=== PATIENT | female | born 2005 | race Caucasian/White ===

== ENCOUNTER 2024-03-07 07:00 | Emergency (ER) | payer OTHER, SELFPAY ==
--- NOTE | ~2024-03-07 | CT_ITS ---
EXAMINATION: CT abdomen pelvis wo con DATE: 03/07/2024 08:43 INDICATION: Hematuria. Abdominal pain. TECHNIQUE: Computed tomography (CT) of the abdomen and pelvis was performed without intravenous contr ast. Automated exposure control and iterative reconstruction technique were employed. The dose-length product was 433.56 mGy-cm. COMPARISON: None. FINDINGS: The visualized portions of the lung bases are clear without pneumonia or pleural effusion. The heart size is normal. No pericardial effusion. The liver, gallbladder, spleen, pancreas, adrenal glands, and kidneys are normal. There is no urolithiasis. There is an intrauterine device in expected position. There are no dilated loops of bowel. The appendix is not visualized. There are no patholog ically enlarged lymph nodes. There is physiologic fluid in the pelvis. There is a tampon the vagina. There is moderate spondylosis at T9-T10. IMPRESSION: 1. No urolithiasis. Reviewed, dictated and finalized at location A. ATRIC PHYSICIAN IMPRESSION: 1. No urolithiasis.
[2024-03-07 07:07] VITALS: BP 131/85; PULSE 70; RESP 15; TEMP 36.2; O2SAT 100
[2024-03-07 07:29] LABS: Add Urine Microscopic? YES; Appearance Urine Cloudy (Clear); Bacteria Urine None Seen /hpf; Bilirubin Urine Negative (Negative); Blood Urine 3+ (Negative); Color Urine Yellow (Yellow); Glucose Urine UA Negative (Negative); Ketones Urine Negative (Negative); Leukocyte Esterase Ur Negative LEU/UL (Negative); Nitrate Urine Negative (Negative); Non Pathogenic Casts 0-2; Protein Urine Negative (Negative); RBC Urine >100 /hpf (0-2); Specific Grav Ur 1.027 (1.001-1.035); Squamous Epithelial Cell Urine Few /hpf (Few); Urobilinogen Urine 0.2 mg/dL (<2.0); pH Urine 5.5 (5.0-9.0)
[2024-03-07 07:59] LABS: BEDSIDEPREGUCG Negative (Negative)
[2024-03-07 08:34] VITALS: BP 118/65; PULSE 68; RESP 16; O2SAT 100
--- NOTE | 2024-03-07 08:36 | ED.GENADULT ---
HPI - General Adult General Chief complaint: Unspecified Stated complaint: i think my IUD is puncturing me Time Seen by Provider: 03/07/24 08:28 History of Present Illness HPI narrative: 18-year-old female presenting to the emergency department for evaluation for suspected IUD pain. Patient reports she had the IUD placed approximately [address] Marie. Patient reports she began having right flank pain and suprapubic abdominal pain approximately 2 days ago. Patient does have some vaginal bleeding because she is currently on her menstrual cycle. Patient did attempt to contact her physician and they stated they were full and referred her to the emergency department. Related Data Allergies Allergy/AdvReac Type Severity Reaction Status Date / Time No Known Allergies Allergy Verified 03/07/24 07:10 Review of Systems Review of Systems: All systems reviewed & are unremarkable except as noted in HPI and below Exam Narrative: APPEARANCE: Well appearing, no pain, no distress, well-nourished. HEAD: normocephalic, atraumatic. EYES: PERRLA/EOMI, conjunctivae clear. NOSE: Normal no drainage EARS:TMS clear with good light reflex. THROAT: Pharynx clear, no exudate. NECK: Supple. No adenopathy, no masses. RESPIRATORY: Airway patent, respirations nonlabored. Clear to auscultation bilaterally, no rales, rhonchi, wheezing. CARDIOVASCULAR: Regular rate and rhythm without murmurs rubs or gallops. ABDOMINAL: Soft, nontender, nondistended, normal bowel sounds MUSCULOSKELETAL: Moves all extremities. Strength/ROM intact, No edema, No calf tenderness. NEURO: Alert. Cranial nerves II through XII intact. Grossly intact SKIN: Warm, dry. Normal Color Course Course Emergency Course: APPEARANCE: Well appearing, no pain, no distress, well-nourished. HEAD: normocephalic, atraumatic. EYES: PERRLA/EOMI, conjunctivae clear. NOSE: Normal no drainage EARS:TMS clear with good light reflex. THROAT: Pharynx clear, no exudate. NECK: Supple. No adenopathy, no masses. RESPIRATORY: Airway patent, respirations nonlabored. Clear to auscultation bilaterally, no rales, rhonchi, wheezing. CARDIOVASCULAR: Regular rate and rhythm without murmurs rubs or gallops. ABDOMINAL: Suprapubic abdominal tenderness to palpation MUSCULOSKELETAL: Moves all extremities. Strength/ROM intact, No edema, No calf tenderness. NEURO: Alert. Cranial nerves II through XII intact. Good gait. Good coordination SKIN: Warm, dry. Normal Color Vital Signs Vital signs: Vital Signs Temperature 97.1 F L 03/07/24 07:07 Pulse Rate 70 03/07/24 07:07 Respiratory Rate 15 03/07/24 07:07 Blood Pressure 131/85 03/07/24 07:07 Pulse Oximetry 100 03/07/24 07:07 Oxygen Delivery Room Air 03/07/24 07:07 Temperature 97.8 F 03/07/24 09:58 Pulse Rate 80 03/07/24 09:58 Respiratory Rate 16 03/07/24 09:58 Blood Pressure 104/81 03/07/24 09:58 Pulse Oximetry 100 03/07/24 09:58 Oxygen Delivery Room Air 03/07/24 07:07 Medical Decision Making MDM Narrative Medical decision making narrative: 18-year-old female presented emergency department for evaluation for suprapubic abdominal pain. UA was negative for infection but did show hematuria. CT scan was ordered to evaluate for possible kidney stone. Nose kidney stone was visualized on CT scan. Bleeding is most likely secondary to her currently time for menstrual cycle. No acute abnormalities on the CT scan, IUD is in the expected location. Patient was encouraged to continue have close follow-up with [facility]. Differential Diagnosis Differential Diagnosis: IUD complicated, ureteral calculi, hematuria, menstrual cycle, abdominal pain Vital Signs Vital Signs: Vital Signs Temperature 97.1 F L 03/07/24 07:07 Pulse Rate 70 03/07/24 07:07 Respiratory Rate 15 03/07/24 07:07 Blood Pressure 131/85 03/07/24 07:07 Pulse Oximetry 100 03/07/24 07:07 Oxygen Delivery Room Air 03/07/24 07:07 Temperature 97.8 F 03/07/24 09:58 Pulse Rate 80 03/07/24 09:58 Respiratory Rate 16 03/07/24 09:58 Blood Pressure 104/81 03/07/24 09:58 Pulse Oximetry 100 03/07/24 09:58 Oxygen Delivery Room Air 03/07/24 07:07 Lab Data Labs: Lab Results 03/07/24 03/07/24 Range/Units 07:18 07:54 Urine Color Yellow (Yellow) Urine Appearance Cloudy H (Clear) Urine pH 5.5 (5.0-9.0) Ur Specific [place] 1.027 (1.001-1.035) Urine Protein Negative (Negative) mg/dL Urine Glucose (UA) Negative (Negative) mg/dL Urine Ketones Negative (Negative) mg/dL Ur Blood (Man) 3+ H (Negative) Urine Nitrate Negative (Negative) Urine Bilirubin Negative (Negative) Urine Urobilinogen 0.2 (<2.0) mg/dL Leukocyte Esterase Rfl Negative (Negative) BIGG/UL Urine RBC >100 H (0-2) /hpf Urine WBC 6-10 H (0-3) /hpf Ur Squamous Epith Cells Few (Few) /hpf Urine Bacteria None seen /hpf Urine Casts 0-2 POC Urine HCG, Qual Negative (Negative) Discharge Plan Discharge Clinical Impression: Pelvic pain Patient Disposition: Home, Self-Care Condition: Stable Instructions: Antibiotic Form Additional Instructions: Have close follow-up with [facility]. Follow-up/Referrals: Jhony Marie MD [Physician] - UNKNOWN,DOCTOR [Primary Care Provider] -
[2024-03-07 09:58] VITALS: BP 104/81; PULSE 80; RESP 16; TEMP 36.6; O2SAT 100
== END 2024-03-07 10:13 | disposition home or self-care (01) ==
PROVIDERS: Emergency Provider Emergency Medicine
DX: R10.2 Pelvic and perineal pain (principal); Z97.5 Presence of (intrauterine) contraceptive device
CPT/HCPCS: 74176; 81001; 81025; 87086; 99284

== ENCOUNTER 2024-09-19 09:31 | Emergency (ER) | payer OTHER, SELFPAY ==
--- NOTE | ~2024-09-19 | XR_ITS ---
XR chest 2V Ordering provider: Mitchell Smith MD History: 19 years Female with . CP . Comparison: July 18, 2014 FINDINGS: MEDIASTINUM: The cardiac silhouette is not enlarged. LUNGS: No infiltrates, effusions or pneumothorax. OTHER: No free air under the diaphragm. IMPRESSION: No acute cardiopulmonary pathology. Reviewed, dictated and finalized at location A.
--- NOTE | ~2024-09-19 | CT_ITS ---
Clinical Indication: Pleuritic chest pain CT Scan of the Chest with Contrast: Technique: Contiguous sections were acquired throughout the chest after intravenous administration of 100 cc of Omnipaque 350. Dose reduction technique was used on this scan by utilizing automated expos ure control and iterative reconstruction technique. The dose-length product (DLP) was 197.77 mGy-cm. Findings: There is no evidence of any significant mediastinal, hilar or axillary lymphadenopathy. There is no f illing defect in the pulmonary arterial tree to suggest pulmonary embolus. There is no evidence of ao rtic dissection or aneurysm. There is no evidence of pleural or pericardial effusion. The lungs are clear. No pulmonary nodules or infiltrates are noted. Images through the upper abdomen reveal no abnormalities. Impression: No evidence of pulmonary embolus, aortic dissection, or aortic aneurysm. Clear lungs. Reviewed, dictated and finalized at [facility]. Impression: No evidence of pulmonary embolus, aortic dissection, or aortic aneurysm. Clear lungs.
[2024-09-19 09:36] VITALS: BP 108/71; PULSE 68; RESP 17; TEMP 36.4; O2SAT 100
--- NOTE | 2024-09-19 09:36 | ECG_ITS ---
Test Date: 2024-09-19 09:39:13 Measurements Intervals [place] Rate: 68 P: 57 PA: 160 QRS: 3 QRSD: 80 T: 5 QT: 379 QTc: 406 Interpretive Statements SINUS RHYTHM WITH SINUS ARRHYTHMIA BORDERLINE ST-T WAVE ABNORMALITY- INFERIOR LEADS BASELINE ARTIFACT- I, II, III, AVR, AVL, AVF, V1-V6 BORDERLINE ECG No previous ECG available for comparison Electronically Signed On 09-19-2024 09:54:27 CDT by Milton Ramsey D.O.
[2024-09-19 09:46] LABS: Basophils Absolute Auto 0.1 K/mm3 (0.0-0.1); Eosinophils Absolute Auto 0.3 K/mm3 (0-0.3); Eosinophils Percent Auto 3.2 % (0-4.4); Hematocrit 38.5 % (37.0-47.0); Immature Granulocyte Absolute 0.03 K/mm3 (0.00-0.031); Immature Granulocyte Percent A 0.4 % (0-0.5); Lymphocytes Absolute Auto 2.92 K/mm3 (0.9-3.2); Lymphocytes Percent Auto 35.6 % (18.3-44.2); Mean Corpuscular HGB Conc 31.2 g/dl (32-36); Mean Corpuscular Hemoglobin 27.6 pg (26-34); Mean Corpuscular Volume 88.7 fl (80-100); Mean Platelet Volume 9.9 fl (7.4-10.4); Monocytes Absolute Auto 0.7 K/mm3 (0.1-0.6); Monocytes Percent Auto 8.8 % (2.6-8.5); Neutrophils Absolute Auto 4.2 K/mm3 (1.3-6.7); Platelet Count Result 352 k/mm3 (150-375); Red Blood Count 4.34 M/mm3 (4.2-5.4); Red Cell Distribution Width 14.4 % (11.5-14.5); White Blood Count 8.2 K/mm3 (4.5-10.0)
--- NOTE | 2024-09-19 09:49 | PC.NURSE ---
Pt reports last time she was here, the hospital gown gave her a rash. Pt prefers to wear home clothes.
[2024-09-19 09:57] LABS: Alanine Aminotransferase 22 U/L (6-35); Albumin Level 4.6 g/dL (3.5-5.1); Alkaline Phosphatase 73 U/L (38-126); Anion Gap 9 mmol/L (4-12); Aspartate Amino Transferase 29 U/L (14-36); Bilirubin,Total 0.2 mg/dL (0.2-1.3); Blood Urea Nitrogen 20 mg/dL (7-17); Calcium 9.4 mg/dL (8.4-10.2); Carbon Dioxide 25 mmol/L (22-30); Chloride 106 mmol/L (98-107); Estimated CRCL calculation 87 ml/min; Estimated Glomerular Filt Rate > 60; Glucose 99 mg/dL (65-110); Lipase 91 U/L (23-300); Potassium 4.1 mmol/L (3.4-5.0); Sodium 140 mmol/L (137-145); Total Protein 7.9 g/dL (6.3-8.2)
[2024-09-19 09:58] LABS: Partial Thromboplastin Time 27.6 Seconds (22.3-36.8)
[2024-09-19 10:08] LABS: Troponin I < 0.012 ng/mL (0.000-0.034)
--- OUTSIDE RECORDS SUMMARY | 2024-09-19 10:23 | XMS_ITS | Clinical Summary ---
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 Name Role Phone Unavailable Primary Care Provider Unavailabl e Allergies No known active allergies Medications No known medications Active Problems No known active problems Family History Medical History Relation Name Comments No Known Problems Father No Known Problems Mother Relation Name Status Comments Father Alive Mother Alive Social History Tobacco Use Types Packs/Day Years Used Date Smoking Tobacco: Never Smokeless Tobacco: Never Tobacco Cessation:Counseling Given: No Alcohol Use Standard Drinks/Week Comments No 0 (1 standard drink = 0.6 oz pur e alcohol) Comments No Sex and Gender Information Value Date Recorded Sex Assigned at Not on file Legal Sex Female 10:04 AM CDT Gender Identity Not on file Sexual Orientation Not on file Last Filed Vital Signs Vital Sign Reading Time Taken Comments Blood Pressure 110/66 11/25/2017 1:45 PM CDT Pulse 58 11/25/2017 1:45 PM CDT Temperature 36.4 C (97.5 F) 11/25/2017 1:45 PM CDT Respiratory Rate 16 11/25/2017 1:45 PM CDT Oxygen Saturation 95% 11/25/2017 1:45 PM CDT Inhaled Oxygen Concentration - - Weight 57.2 kg (126 lb) 11/25/2017 1:45 PM CDT Height 162.6 cm (5' 4) 11/25/2017 1:45 PM CDT Body Mass Index 21.63 11/25/2017 1:45 PM CDT Plan of Treatment Health Maintenance Due Date Last Done Comments CHLAMYDIA SCREENING (ANNUAL) 11-24 YEARS 08/25/2015 HPV VACCINES (1 - 3-dose series) 08/25/2019 DTAP/TDAP/TD VACCINES (1 - Tdap) 08/25/2023 HEPATITIS B VACCINES (1 of 3 - 19+ 3-dose series) 08/04 INFLUENZA VACCINE (#1) 2023
--- OUTSIDE RECORDS SUMMARY | 2024-09-19 10:24 | XMS_ITS | Data Portability ---
Author Organization [facility] [place] Address [address] [place] [address] Care Team Providers Care Rubber Attacher Name Role Phone CLARIBEL FLETCHER Primary Care Provider [phone] Assessment No assessment recorded. Plan of Treatment Reminders Order Date Submit Date Provider Last Modified By Organization Details Last Modified Time Details Appointments None recorded. Lab urinalysis, dipstick [address]24 [email or web address], [address], [place], [address], 5 15:20:38 culture, urine 2024 025 [facility] (Lab), [address] [facility], [place], [address], 5 15:44:26 urinalysis, dipstick 2023 024 [place] [facility] [address], [place], [address], 4 11:41:39 test, urine 2023 024 [email or web address] [address], [address], [place], [address], 10:00:57 test, urine 2023 024 [email or web address] [address], [address], [place], [address], 4 11:26:05 Referral pelvic floor therapy referral 2024 025 [facility], [address] [facility], [place], [address], 5 04:01:38 Procedures None recorded. Surgeries None recorded. Imaging US, pelvis [address], [address], [address], [place], [address], 4 18:03:42 US, transvagina l [address] [facility] [address], [place], [address], 4 18:03:42 US, pelvis, complete 2023 024 [facility], [facility] [address], [place], [address], 4 04:01:50 Medication Orders amoxicillin 875 mg-potassiu m clavulanate 125 mg tablet 2024 025 [id number], [address] [facility], [place], [place], [id number], 5 16:12:06 ParaGard T 380A 380 square mm intrauterin e device 2023 024 [email or web address] Not available 13:55:20 Patient TargetsNo targets recorded. Patient Instructions Encounter Date Encounter Id Patient Instructions Last Modified By Organization Details Last Modified Time 05/29/2024 [id number] kegel exercises: care instructions [email or web address] Not available 05/29/2024 15:20:37 Reason for Referral Pelvic Floor Therapy Referra l for Female stress incontinence Referring Physician: Ketty Dotson, Gynecology, Encounter Date: 05/29/2024 Results Created Date Observation Date Name Description Value Unit Range Abnormal Flag Note LastModifiedBy Organization Detail LastModifiedTime 12/27/19 24 12/27/2023 [facility], MANDEEP bacterial vaginosis (bv), tma Positi ve negati ve abnormal Not Available [facility] (Lab) [address] [place], [address], 12/29/2023 08:28:00 12/27/19 24 12/27/[address] [facility] nia species, tma Positi ve negati ve abnormal Not Available [facility] (Lab) [address] [place], [address], 12/29/2023 08:28:00 12/27/19 24 12/27/[address] [facility]DEPE nia glabrata, tma Negati ve negati ve Not Available [facility] (Lab) [address] [place], [address], 12/29/2023 08:28:00 12/27/19 24 12/27/[address] [facility], AMNDEEP trichomonas vaginalis, tma Negati ve negati ve Not Available [facility] (Lab) [address] [place], [address], 12/29/2023 08:28:00 12/27/19 24 12/27/[address] [facility] MANDEEP chlamydia trachomatis, PCR Negati ve negati ve Not Available [facility] (Lab) [address] [place], [address], 12/29/2023 08:28:00 12/27/19 24 12/27/[address] [facility], MANDEEP neisseria gonorrhoeae, PCR Negati ve negati ve Bacte rial vagin osis detec ts the follo wing bacte kenny assoc iated with bacte rial vagin osis (BV): Lacto bacil yaneth (L. gasse ri, L. crisp atus and L. jense tad), Gardn erell a vagin angel, and Atopo bium vagin ae. A singl e quali tativ e resul t is repor angel base on instr ument softw are to deter mine BV posit arabella or negat arabella statu s. The [employer] [facility] speci es group tests for C. albic ans, C. tropi calis , C. parap ronan is, C. dubli niens is. Testi ng is perfo rmed using the Trans cript ion Media angel Ampli ficat ion metho d. Tests for Kimberly da glabr jeannine, Trich omona s vagin angel, Chlam ydia trach omati s, and Neiss eria gonor rhoea e are also inclu ded in this panel . Not Available [facility] (Lab) [address] [facility], [place], [address], 12/29/2023 08:28:00 01/14/20 24 01/14/2024 pregn robles test, urine HCG negati ve Not Available [place] [address], [place], [address], 01/14/2024 11:25:52 03/09/20 24 03/09/2024 CULTU RE: URINE result report SEE RESULT S BELOW abnormal Test: Cultu re: Urine Speci men Sourc e: Urine - Clean Catch Speci men Type: Urine Speci men Date: 2023 0921 Resul t Date: 2023 0149 Resul t Statu s: Final resul t Abnor mal: Yes Resul ting Lab: [facility] [address] [facility] [address] Tel: CULTU RE ----- ----- ----- --- >100, 000 CFU/m l Strep tococ cus agala ctiae (Grou p B) (Abno rmal) Strep tococ cus agala ctiae (Beta strep Group B Strep ) remai ns unive rsall y susce ptibl e to penic illin , cefaz carolyn and vanco mycin . If clind amyci n is being consi dered for intra partu m proph ylaxi s, pleas e conta ct the lab withi n 5 days. Not Available [facility] (Lab) [address], [place], [address], 03/11/2024 02:53:54 03/09/20 24 03/09/2024 urina lysis , dipst ick Leukocytes + Not Available [facility] [address], [place], [address], 03/09/2024 11:40:37 03/09/20 24 03/09/2024 urina lysis , dipst ick Nitrite Negati ve Not Available [place] [address], [place], [address], 03/09/2024 11:40:37 03/09/20 24 03/09/2024 urina lysis , dipst ick Urobilinogen Normal Not Available [facility] jonn [address], [place], [address], 03/09/2024 11:40:37 03/09/20 24 03/09/2024 urina lysis , dipst ick Protein Trace Not Available [place] [address], [place], [address], 03/09/2024 11:40:37 03/09/20 24 03/09/2024 urina lysis , dipst ick pH 5 Not Available [place] [address], [place], [address], 03/09/2024 11:40:37 03/09/20 24 03/09/2024 urina lysis , dipst ick Blood + Not Available [place] [address], [place], [address], 03/09/2024 11:40:37 03/09/20 24 03/09/2024 urina lysis , dipst ick Specific [place] 1.030 Not Available [facility] [address], [place], [address], 03/09/2024 11:40:37 03/09/20 24 03/09/2024 urina lysis , dipst ick Ketone Negati ve Not Available [place] [address], [place], [address], 03/09/2024 11:40:37 03/09/20 24 03/09/2024 urina lysis , dipst ick Bilirubin Negati ve Not Available [place] [address], [place], [address], 03/09/2024 11:40:37 03/09/20 24 03/09/2024 urina lysis , dipst ick Glucose Normal Not Available [place] [address], [place], [address], 03/09/2024 11:40:37 03/09/20 24 03/09/2024 urina lysis , dipst ick Color Dark yellow Not Available [place] [address], [place], [address], 03/09/2024 11:40:37 03/09/20 24 03/09/2024 pregn robles test, urine HCG negati ve Not Available [place] [address], [place], [address], 03/09/2024 10:00:39 05/29/19 25 05/29/2024 CULTU RE: URINE result report SEE RESULT S BELOW abnormal Test: Cultu re: Urine Speci men Sourc e: Urine - Clean Catch Speci men Type: Urine Speci men Date: 2024 1404 Resul t Date: 2024 0631 Resul t Statu s: Final resul t Abnor mal: Yes Resul ting Lab: [facility] [address] [facility] [address] Tel: CULTU RE ----- ----- ----- --- 75,00 0-100 ,000 CFU/m l Klebs iella pneum oniae (Abno rmal) SUSCE PTIBI LITY ----- ----- ----- --- Klebs iella pneum oniae METHO D NIMESH ----- ----- ----- ----- ----- ---- ----- ----- ----- ----- ----- - AMPIC ILLIN /SULB ACTAM <=8 ug/mL Susce ptibl e AZTRE ONAM <=4 ug/mL Susce ptibl e CEFAZ CAROLYN <=2 ug/mL Susce ptibl e CEFEP RISHI <=2 ug/mL Susce ptibl e CEFTA ZIDIM E <=1 ug/mL Susce ptibl e CEFTR IAXON E <=1 ug/mL Susce ptibl e CIPRO FLOXA ARMAND <=0.2 5 ug/mL Susce ptibl e GENTA MICIN <=2 ug/mL Susce ptibl e LEVOF LOXAC IN <=0.5 ug/mL Susce ptibl e MEROP ENEM <=1 ug/mL Susce ptibl e NITRO FURAN TOIN 64 ug/mL Inter media te PIPER ACILL IN/TA ZOBAC SÁNCHEZ <=8 ug/mL Susce ptibl e TOBRA MYCIN <=2 ug/mL Susce ptibl e TRIME THOPR IM/HELTON LFAME THOXA ZOLE <=2 ug/mL Susce ptibl e Not Available [facility] (Lab) [address], [place], [address], 06/01/2024 15:44:26 05/29/19 25 05/29/2024 urina lysis , dipst ick Leukocytes - Not Available [facility] [address], [place], [address], 05/29/2024 14:59:28 05/29/19 25 05/29/2024 urina lysis , dipst ick Nitrite - Not Available [place] [address], [place], [address], 05/29/2024 14:59:28 05/29/19 25 05/29/2024 urina lysis , dipst ick Urobilinogen - Not Available [facility] jonn [address], [place], [address], 05/29/2024 14:59:28 05/29/19 25 05/29/2024 urina lysis , dipst ick Protein trace Not Available [place] [address], [place], [address], 05/29/2024 14:59:28 05/29/19 25 05/29/2024 urina lysis , dipst ick pH 5 Not Available [place] [address], [place], [address], 05/29/2024 14:59:28 05/29/19 25 05/29/2024 urina lysis , dipst ick Blood +++ Not Available [place] [address], [place], [address], 05/29/2024 14:59:28 05/29/19 25 05/29/2024 urina lysis , dipst ick Specific [place] 1.010 Not Available [facility] [address], [place], [address], 05/29/2024 14:59:28 05/29/19 25 05/29/2024 urina lysis , dipst ick Ketone - Not Available [place] [address], [place], [address], 05/29/2024 14:59:28 05/29/19 25 05/29/2024 urina lysis , dipst ick Bilirubin - Not Available [facility] [address], [place], [address], 05/29/2024 14:59:28 05/29/1905/29/2024 urina lysis , dipst ick Glucose - Not Available [place] [address], [place], [address], 05/29/2024 14:59:28 05/29/19 25 05/29/2024 urina lysis , dipst ick Appearance clear Not Available [facility] [address], [place], [address], 05/29/2024 14:59:28 05/29/19 25 05/29/2024 urina lysis , dipst ick Color light yellow Not Available [place] [address], [place], [address], 05/29/2024 14:59:28 03/14/20 24 03/14/2024 US, pelvi s No observ ation record ed. [email or web address] [place] [address], [place], [address], 03/14/2024 16:08:25 03/14/20 24 03/14/2024 US, trans vagin al No observ ation record ed. [email or web address] [place] [address], [place], [address], 03/14/2024 16:08:34 03/14/20 24 03/14/2024 US, pelvi s No observ ation record ed. GALE Jenny [address], [place], [address], 03/17/2024 19:51:51 Result Notes None recorded. Procedures Surgical History Date Name Laterality Status Provider Name and Address Organization Details Recorded Time IUD Insertion completed Jhony Marie MD [address], [place], [address], [facility] 01/14/2024 12:36:22 4 IUD Insertion cancelled Davida Brown [facility] 01/12/2024 16:49:40 4 IUD Removal completed Jhony Marie MD [address], [place], [address], [facility] 08/28/2023 12:05:07 3 Removal of Foreign Body completed KARLA Peters [address], [place], [address], [facility] 12/03/2022 16:05:44 3 IUD Insertion completed Claribel Fletcher CNM [address], [place], [address], [facility] 05/20/2022 16:09:36 8 Knee arthroscopy/s urgery completed Anita Pakrer [facility] 10/22/2021 15:02:03 Imaging Results None recorded. Procedure Notes None recorded. Medical Equipment None Reported. Allergies No known drug allergies Medications Name Sig Start Date Stop Date Status Note LastModified by Organization Details LastModified Time cetirizine 10 mg tablet TAKE 1 TABLET BY MOUTH DAILY DIRECTED 05/29 completed Not Available Not Available Not Available azithromyci n 250 mg tablet 05/29 completed Not Available Not Available Not Available ibuprofen 800 mg tablet Take 1 tablet 2 hours before the procedure . 02/15 completed Not Available Not Available Not Available fluconazole 150 mg tablet TAKE 1 TABLET BY MOUTH ONCE FOR 1 DOSE 01/13 completed Not Available Not Available Not Available ampicillin 500 mg capsule Take 1 capsule every 12 hours by oral route for 10 days. 05/15 completed Not Available Not Available Not Available hydrocodone 5 mg-acetamin ophen 325 mg tablet TAKE 1 TABLET BY MOUTH 1 HOUR PRIOR TO PROCEDURE 08/05 completed Not Available Not Available Not Available phenazopyri dine 200 mg tablet TAKE 1 TABLET BY MOUTH THREE TIMES DAILY 08/16 completed Not Available Not Available Not Available metronidazo le 500 mg tablet Take 1 tablet twice a day by oral route for 7 days. 01/13 completed Not Available Not Available Not Available sulfamethox azole 800 mg-trimetho prim 160 mg tablet TAKE 1 TABLET BY MOUTH EVERY 12 HOURS FOR 7 DAYS active Not Available Not Available No t Available ondansetron 8 mg disintegrat ing tablet Take 1 tablet 2 hours before procedure . 02/15 completed Not Available Not Available Not Available oxycodone-a cetaminophe n 5 mg-325 mg tablet TAKE 2 TABLETS BY MOUTH 2 HOURS PRIOR TO PROCEDURE 02/15 completed Not Available Not Available Not Available alprazolam 0.5 mg tablet Take 1 tablet 2 hours before the procedure . 02/15 completed Not Available Not Available Not Available Depo-Medicare Interviewer a 150 mg/mL intramuscul ar suspension Inject 1 mL every 3 months by intramusc ular route. 05/20 completed Not Available Not Available Not Available diazepam 2 mg tablet TAKE 1 TABLET BY MOUTH 1 HOUR PRIOR TO PROCEDURE 08/05 completed Not Available Not Available Not Available misoprostol 200 mcg tablet insert tablets in the vagina the night prior to insertion 02/15 completed Not Available Not Available Not Available fluoxetine 10 mg capsule TAKE 1 CAPSULE BY MOUTH EVERY DAY 08/16 completed Not Available Not Available Not Available methylpredn isolone 4 mg tablets in a dose pack 05/29 completed Not Available Not Available Not Available ondansetron 4 mg disintegrat ing tablet DISSOLVE 1 TABLET UNDER THE TONGUE 1 HOUR PRIOR TO PROCEDURE 08/05 completed Not Available Not Available Not Available ParaGard T 380A 380 square mm intrauterin e device Take 1 device by intrauter ine route. 2023 active Not Available Not Available Not Avai lable amoxicillin 875 mg-potassiu m clavulanate 125 mg tablet Take 1 tablet every 12 hours by oral route for 7 days. 06/01 completed Not Available Not Available Not Available amoxicillin 500 mg-potassiu m clavulanate 125 mg tablet Take 1 tablet every 12 hours by oral route for 5 days. 05/29 completed Not Available Not Available Not Available medroxyprog esterone 150 mg/mL intramuscul ar syringe Inject 1 mL every 3 months by intramusc ular route. 05/15 completed Not Available Not Available Not Available nitrofurant oin monohydrate /macrocryst als 100 mg capsule TAKE 1 CAPSULE BY MOUTH TWICE DAILY 08/16 completed Not Available Not Available Not Available ID NOW COVID-19 Test Kit TEST DIRECTED TODAY 05/15 completed Not Available Not Available Not Available Flowflex COVID-19 Antigen Home Test kit TEST DIRECTED TODAY 05/15 completed Not Available Not Available Not Available Vitals Date Recorded Body height Body mass index (BMI) Body mass index (BMI) [Percentile] Per age and sex Body weight Systolic blood pressure Diastolic blood pressure Provider Name and Address Organization Details Last Updated DateTime 5 166.37 cm 26.4 kg/m2 85 % 72213.0 9 g 113 mm[Hg] 72 mm[Hg] Davida Brown [facility] 5 14:58:12 Date Recorded Body height Body mass index (BMI) [Percentile] Per age and sex Body mass index (BMI) Body weight Systolic blood pressure Diastolic blood pressure Provider Name and Address Organization Details Last Updated DateTime 4 166.37 cm 87 % 26.7 kg/m2 44619.5 6 g 110 mm[Hg] 69 mm[Hg] [facility] 11:22:50 Date Recorded Body height Body mass index (BMI) Body mass index (BMI) [Percentile] Per age and sex Body weight Systolic blood pressure Diastolic blood pressure Provider Name and Address Organization Details Last Updated DateTime 4 166.37 cm 26.2 kg/m2 85 % 31197.7 8 g 121 mm[Hg] 75 mm[Hg] [facility] 4 17:39:33 Date Recorded Body height Body mass index (BMI) Body mass index (BMI) [Percentile] Per age and sex Body weight Systolic blood pressure Diastolic blood pressure Provider Name and Address Organization Details Last Updated DateTime 4 166.37 cm 26.4 kg/m2 85 % 20683.3 7 g 104 mm[Hg] 71 mm[Hg] Jacquie Spears [facility] 4 09:31:45 Social History Question Answer Notes LastModified by Organizat ion Details LastModified Time Tobacco Smoking Status Never Smoker Anita montalvo, [facility] 10/22/2021 15:01:36 Are You Blind Or Do You Have Difficulty Seeing? No [email or web address] Information n ot available 10/22/2021 What Is Your Level Of Caffeine Consumption? Occasional [email or web address] Information not available 10/22/2021 How Much Tobacco Do You Chew? None [email or web address] Information not available 12/27/2023 In The 14 Days Before Symptom Onset, Have You Had Close Contact With A Laboratory-confirm ed COVID-19 While That Case Was Ill? No [email or web address] Information n ot available 10/22/2021 In The 14 Days Before Symptom Onset, Have You Had Close Contact With A Person Who Is Under Investigation For COVID-19 While That Person Was Ill? No [email or web address] Information not available 10/22/2021 Have You Been To An Area Known To Be High Risk For COVID-19? No [email or web address] Information not available 10/22/2021 Are You Deaf Or Do You Have Serious Difficulty Hearing? No Information not available 10/22/2021 What Type Of Diet Are You Following? REGULAR [email or web address] Information n ot available 10/22/2021 What Is The Highest Grade Or Level Of School You Have Completed Or The Highest Degree You Have Received? [id number] [email or web address] Information not available 12/27/2023 Are There Any Guns Present In Your Home? No [email or web address] Information not available 12/27/2023 Do You Use Protection During Sex? No [email or web address] Information not available 12/27/2023 Do You Use Your Seat Belt Or Car Seat Routinely? Yes [email or web address] Information not available 10/22/2021 Do You Have Smoke And Carbon Monoxide Detectors In Your Home? Yes [email or web address] Information not available 10/22/2021 How Much Tobacco Do You Smoke? No [email or web address] Information not available 12/27/2023 Do You Use Sunscreen Routinely? No [email or web address] Information not available 12/27/2023 Has Tobacco Cessation Counseling Been Provided? No [email or web address] Information not available 10/22/2021 Have You Used IV Drugs? No [email or web address] Information not available 12/27/2023 Do You Have Difficulty Walking Or Climbing Stairs? No [email or web address] Information not available 10/22/2021 Sex: Unknown Functional Status Question Answer Note LastModified by Organizat ion Details LastModified Time Do you use any illicit or recreational drugs? No [email or web address] Information not available 10/22/2021 Do you or have you ever used any other forms of tobacco or nicotine? No [email or web address] Information not available 10/22/2021 What is your level of alcohol consumption? Occasional [email or web address] Information not available 12/27/2023 Are you able to walk? YESWOREST [email or web address] Information not available 10/22/2021 Are you able to care for yourself? 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 No [email or web address] Information not available 10/22/2021 What is your exercise level? Occasional [email or web address] Information not available 10/22/2021 Mental Status Question Answer Note LastModified by Organization D etails LastModified Time Do you feel stressed (tense, restless, nervous, or anxious, or unable to sleep at night)? [id number] [email or web address] Information not available 10/22/2021 Family History Relationship Description Onset Age of this Age Resolved Age Notes LastModified by Organization Details LastModified Time Maternal Aunt Diabetes mellitus [email or web address] Not available 10/22 15:00:56 Maternal Aunt Female infertility Not available 12/05 09:46:38 Unspecified Relation Malignant tumor of breast matern al great grandm a [email or web address] Not available 10/24/2021 18:16:30 Maternal Grandmother Malignant tumor of pancreas 61 [email or web address] Not available 2023 09:46:38 Medical History Condition Response Anxiety Disorder Y Gynecological History Statement/Question Response Date of Last Mammogram Flow Moderate Date of LMP 05/26/2024 N Was last menstrual period normal Y STIs/STDs N Date of Last Colonoscopy IUD Desired Control Method IUD Abnormal Pap N On BCP's at Conception? N Colposcopy HPV Vaccine N Duration of Flow (days) 5 Current Control Method IUD Are cycles usually normal Y Frequency of Cycle (Q days) 28 Sexually Active? Y Menses Monthly Y Date of DEXA bone scan Age of first menstrual cycle 13 Date of Last Pap Smear Sexual Problems? N LMP Definite N Obstetrics History GPAL:G 0 P 0 0 0 0 Type Value Living 0 Total 0 Past Encounters Encounter ID Performer Location Encounter Start Date Encounter Closed Date Diagnosis/Indication Diagnosis SNOMED-CT Code Diagnosis ICD10 Code Diagnosis Note [id number] Claribel Fletcher [facility] [address],[place] [address] 10/22/2021 14:38:10 10/22/2021 15:37:53 Contraception care management 285833645 Z30.9 Urinary tr act infectious disease 85245616 N39.0 [id number] Claribel Fletcher [facility] [address],[place] [address] 03/25/2022 13:46:25 03/26/2022 16:13:14 Contraception care management 837310779 Z30.9 [id number] Claribel Fletcher [facility] [address],[place] [address] 05/15/2022 09:33:02 05/15/2022 11:20:15 Contraception care management 581263665 Z30.9 discussed ocp, pop, IUD (hormonal vs non hormonal), phexxi, cervical cap, all se risks and benefits reviewed including copper IUD risk of increased bleeding and cramping, infection, perforatio n and expulsion. plan cytotec night prior and meds at time of procedure, mom to drive.plan within next week or so prior to end of depo window. Mixed anxi ety and depressive disorder 058867300 F41.8 declines counseling , list given and encouraged , declines meds at this time, if any suicidal thoughts to ED [id number] Claribel Fletcher, [facility] [address],[place] [address] 05/20/2022 15:34:40 05/20/2022 16:14:59 Insertion of intrauterine contraceptive device 74002620 Z30.430 Screening procedure 2012 5006 Z13.9 Venereal d isease screening 668381816 Z11.3 [id number] Claribel Fletcher [facility] [address],[place] [address] 08/05/2022 15:48:51 08/05/2022 16:14:07 Mixed anxiety and depressive disorder 427368139 F41.8 declines counseling , list given and encouraged ,, if any suicidal thoughts to EDdiscusse d meds for anxiety/de pression do to anxiety rec fluoxetine to start, may take 4-6 wks to start working.ma y need to send to a psychiatri st for med changes if meds dont start helping. discussed if any increased thoughts of suicide to ED immediatel y, questions answered f/u med check 4 weeks [id number] KARLA Peters [place] [address],[place] [address] 12/03/2022 15:26:16 12/03/2022 16:13:25 Contraception care management 888821978 Z30.9 small fragment of tampon seen attached to IUD strings. IUD strings trimmed and fragment of tampon removed.we agreed to update TVUS for IUD placement checkdiscu ssed recent irregular period likely due to discontinu ing depo and periods starting to regulate back outgc/ct/t rich testing sentprecau tions reviewedRT C for pelvic u/s and f/u Time spent in visit is a total of 35 mins with at least 50% of visit consisting of counseling and review of plan of care. Irregular periods 842920 07 N92.6 Tampon ret ained in vagina 333970402 Z18.89 Venereal d isease screening 181411457 Z11.3 [id number] KARLA Peters [facility] [address],[place] [address] 08/17/2023 14:29:44 08/17/2023 15:18:07 Screening procedure 28875233 Z13.9 Pain in pelvis 44114510 R10.2 gc/ct/tric h testing senturine cx sentnormal appearing IUD strings noted on exampelvic u/s orderedenc ouraged PCP f/u for bowel movement changesRTC for pelvic u/s and f/u appointmen tquestions answered, precaution s reviewed Time spent in visit is a total of 30mins with at least 50% of visit consisting of counseling and review of plan of care. Loose stool 845547508 R1 9.5 Venereal d isease screening 490636221 Z11.3 Female str ess incontinence 20847835 N39.3 [id number] Jhony Marie MD [facility] [address],[place] [address] 08/18/2023 14:18:39 08/18/2023 14:53:00 Pain in pelvis 50464919 R10.2 [id number] Jhony Marie MD [facility] [address],[place] [address] 08/28/2023 10:57:54 08/28/2023 12:07:20 Screening procedure 54797333 Z13.9 Contracept ion care management 474228116 Z30.9 IUD removed without complicati ons. She tolerated it well. [id number] NIKOLAS RESENDIZ MD [facility] [address],[place] [address] 12/27/2023 09:46:25 12/27/2023 10:18:23 Vaginitis 93192451 N76.0 - likely yeast given discharge appearance and symptoms- patient also requests STD testing- will send diflucan and treat empiricall y Contracept ion care management 253959330 Z30.9 Discussed with patient risks, benefits, and alternativ es of contracept ion. Discussed all options, including natural family planning, condoms, combined oral contracept john, contracept arabella patch, Nuva-ring, Depo-Prove ra, Nexplanon, intrauteri ne device, and sterilizat ion (tubal ligation, vasectomy) . Advised that of the above listed options, only condoms can prevent sexually transmitte d infections and that condoms can be used together with any form of contracept ion. Patient has no contraindi cations. Patient reports that she has used Copper IUD and depi in the past. After extensive counseling , patient at this time desires Copper IUD. Patient to call on first day of next cycle to schedule placement. [id number] Jhony Marie MD [facility] [address],[place] [address] 01/14/2024 11:02:03 01/14/2024 13:06:34 Contraception care management 952840696 Z30.9 IUD inserted without complicati ons. She tolerated it well. Insertion of intrauterine contraceptive device 70102647 Z30.430 [id number] Jhony Marie MD [facility] [address],[place] [address] 02/16/2024 17:30:38 02/17/2024 09:19:10 Contraception care management 695367256 Z30.9 This patient is a 18 female who presents for IUD check. She [facility]. She has no complaints . She denies any excessive bleeding or pain. She has had some cramping and some spotting. Otherwise, she feels that is going well and wants to continue her IUD. [id number] KARLA Peters [facility] [address],[place] [address] 03/09/2024 09:24:57 03/09/2024 11:51:36 Pain in pelvis 54006226 R10.2 suspect GI source of symptoms given irregular bowel movementsw ill update pelvic u/s - ordereduri ne cx sentSTI screen declinedqu estions answeredwi ll reach out to pt with pelvic u/s results and discuss next steps Time spent in visit is a total of 25 mins with at least 50% of visit consisting of counseling and review of plan of care. Urinary symptoms 4212772 08 R39.9 [id number] Jhony Marie MD [facility] [address],[place] [address] 03/14/2024 15:27:11 03/14/2024 16:17:17 Pain in pelvis 30034930 R10.2 [id number] Jhony Marie MD [facility] [address],[place] [address] 05/29/2024 14:44:40 05/29/2024 15:42:26 Urinary symptoms 812961432 R39.9 Discussed empiric treatment of suspected UTI based on reported symptoms. Urine dipstick positive for blood and trace protein.Wi ll treat with Augmentin initially due to patient's past history of confirmed UTIs caused by group b strep.UTI precaution s reviewed. Discussed bladder irritants to avoid. Female str ess incontinence 00755722 N39.3 Recommende d pelvic floor therapy to help with stress incontinen ce.Discuss ed urology referral if PFT does not help symptoms, or if UTIs become recurrent. Patient agreeable to plan of care. Health Concerns Section Related Observation LastModified by Organization Detai ls LastModified Time None Recorded Concern Status LastModified by Organization Details LastModified Time None Recorded Advance Directives Directive None Recorded Payers Insurance Date Sequence Insurance Name Policy Number Policy Mccormick Covered Member ID Mccormick Member ID Guarantor Name 05/29/2024 1 [facility] [id number] [place] [id number] Jodi Loya 09/13/2023 PAYMENT PLAN Jodi Loya 08/16/2023 1 [facility] (PP[facility]) [id number] Jodi Loya [id number] Jodi Loya 05/29/2024 1 [facility] - DOS ON OR AFTER 20 (MEDICAID REPLACEMENT - HMO) Negin Paulino [id number] Jodi Loya 08/10/2023 [place] Negin Paulino [id number] Jodi Loya Notes Date Note Type Note Provider Name and Address Organization Details Recorded Time 01/14/2024 text/html Patient presents for IUD insertion. The procedure was explained to the patient in detail. She understands the procedure. She understands the risks, benefits, and alternatives. She has completed the informed consent process and is ready to proceed. Esthela montalvo [place] - [facility] 01/14/2024 13:22:19 02/16/2024 text/html This patient is a 18 female who presents for IUD check. She had a Mirena IUD inserted approximately 1 month ago. She has no complaints. She denies any excessive bleeding or pain. She has had some cramping and some spotting. Otherwise, she feels that is going well and wants to continue her IUD. Jhony Marie MD [address], [place], [address], [facility] 02/16/2024 22:17:26 03/09/2024 text/html 18yopresents for ED f/uBC - ParaGuard IUD, inserted 01/2024seen in ED about a week ago for abdominal painwas experiencing sharp bilateral pain and loose stoolshad a CT done that showed normal appearing ParaGuard IUDher symptoms have improved, only noticing slight cramping at times neg urinary symptomsneg d/c, odors, itchingno new partnersneg n/v/f KARLA Peters [address], [place], [address], [facility] 03/09/2024 11:42:53 05/29/2024 text/html Patient here wit h c/o urinary urgency, hesitancy, and frequency x 2 days since she started her period. Patient states that she often has these symptoms when her periods start.Patient denies dysuria, back pain, fever, chills.Patient had urine culture 03/09/24 and 10/22/21 that was positive for group beta strep. Patient also reports that she experiences urine leakage when coughing, sneezing, running. Patient also experiences urge incontinence when her bladder is full and she goes to the bathroom and sees the toilet. Patient states that these symptoms have been persistent for several months. Patient is a , denies prior known history of pelvic floor dysfunction.Patient states that she tries to use the bathroom on a regular basis (every 3-4 hours) and not hold her urine.Denies vaginal symptoms. Denies GI sx. KETTY DOTSON NP [address], [place], [address], [facility] 05/29/2024 15:38:11 OBGyn Episode No OBEpisode recorded.
--- OUTSIDE RECORDS SUMMARY | 2024-09-19 10:24 | XMS_ITS | Data Portability ---
Author Organization [facility] [employer], Main Office Address [address] [place] [address] Assessment No assessment recorded. Plan of Treatment Reminders Order Date Submit Date Provider Last Modified By Organization Details Last Modified Time Details Appointments None recorded. Lab CBC w/ auto diff [address] Outpatient Lab, [address] [place], [address], 4 11:56:50 CMP, serum or plasma 2023 024 [facility], [address] [place], [address], 4 16:48:21 lipid panel, serum 2023 024 [facility] (Lab), [address] [place], [address], 4 16:48:21 vitamin D, 25-hydroxy , total, serum 2023 024 [facility], [address] [place], [address], 4 16:46:00 TSH + free T4, serum 2023 024 [facility], [address] [place], [address], 4 16:48:21 HbA1c (hemoglobi n A1c), blood 2023 024 [facility], [address] [place], [address], 4 16:48:21 Referral dermatolog ist referral 2023 samir Castro MD (Dermatology) , [address] [facility] [address], [place], [address], 5 08:13:31 Procedures None recorded. Surgeries None recorded. Imaging None recorded. Medication Orders Zyrtec 10 mg tablet 2023 [id number], [address], [place], [place], [id number], 11:53:09 Patient TargetsNo targets recorded. Patient Instructions Encounter Date Encounter Id Patient Instructions Last Modified By Organization Details Last Modified Time 09/09/2023 [id number] Follow up in 6 months and as needed Referral dermatology Prescriptions sent to pharmacy Obtain labs [email or web address] Not available 09/09/2023 11:52:35 Reason for Referral [employer] Referral for S kin lesion Referring Physician: Janeth Rehman, Internal Medicine, Encounter Date: 09/09/2023 Results Created Date Observation Date Name Description Value Unit Range Abnormal Flag Note LastModifiedBy Organization Detail LastModifiedTime Result Notes None recorded. Problems Name Problem SNOMED Code Status Onset Date Resolution Date Notes Provider Name and Address Organization Details Recorded Time Multiple lesions 719781315 Active Janeth Rehman APRN [address], [place], [address] , [employer] 4 11:46:05 Skin lesion 37295807 Active [address], [place], [address] , [employer] 4 11:48:36 Cough 27591302 Active [address], [place], [address] , [employer] 11:48:56 Seasonal allergic rhinitis 549958558 Active 024 Janeth Rehman, PRE CODER [address] [facility], [facility] [address], [place], [address] , [facility] [employer] [facility] 11:49:35 Problem Notes None recorded. Procedures Surgical History Date Name Laterality Status Provider Name and Address Organization Details Recorded Time Knee completed Leanne malik MA [facility] [employer] [facility] 09/09/2023 11:21:59 Imaging Results None recorded. Procedure Notes None recorded. Medical Equipment None Reported. Allergies No known drug allergies Medications Name Sig Start Date Stop Date Status Note LastModified by Organization Details LastModified Time cetirizine 10 mg tablet TAKE 1 TABLET BY MOUTH DAILY DIRECTED active Not Available Not Available No t Available azithromyci n 250 mg tablet active Not Available Not Available Not Available ibuprofen 800 mg tablet TAKE 1 TABLET BY MOUTH 2 HOURS PRIOR TO PROCEDURE active Not Available Not Available No t Available fluconazole 150 mg tablet TAKE 1 TABLET BY MOUTH DIRECTED active Not Available Not Available No t Available phenazopyri dine 200 mg tablet TAKE 1 TABLET BY MOUTH THREE TIMES DAILY 09/08 completed Not Available Not Available Not Available metronidazo le 500 mg tablet TAKE 1 TABLET BY MOUTH TWICE DAILY FOR 7 DAYS active Not Available Not Available No t Available ondansetron 8 mg disintegrat ing tablet DISSOLVE 1 TABLET ON THE TONGUE 2 HOURS BEFORE PROCEDURE active Not Available Not Available No t Available oxycodone-a cetaminophe n 5 mg-325 mg tablet TAKE 2 TABLETS BY MOUTH 2 HOURS PRIOR TO PROCEDURE active Not Available Not Available No t Available alprazolam 0.5 mg tablet TAKE 1 TABLET BY MOUTH 2 HOURS BEFORE PROCEDURE active Not Available Not Available No t Available misoprostol 200 mcg tablet INSERT 2 TABLETS VAGINALLY THE NIGHT BEFORE PROCEDURE active Not Available Not Available No t Available methylpredn isolone 4 mg tablets in a dose pack FOLLOW PACKAGE DIRECTION S active Not Available Not Available No t Available nitrofurant oin monohydrate /macrocryst als 100 mg capsule TAKE 1 CAPSULE BY MOUTH TWICE DAILY 09/08 completed Not Available Not Available Not Available Vitals Date Recorded Body height Body mass index (BMI) [Percentile] Per age and sex Body mass index (BMI) Body weight Body temperature Heart rate Oxygen saturation Oxygen saturation in Arterial blood by Pulse oximetry Systolic blood pressure Diastolic blood pressure Provider Name and Address Organization Details Last Updated DateTime 169.55 cm 88 % 27 kg/m2 97085.3 g 97.7 [degF] 74 /min 98 % 98 % 112 mm[Hg] 74 mm[Hg] Leanne Guillen MA [employer] 11:16:45 Social History Question Answer Notes LastModified by Organizat ion Details LastModified Time Tobacco Smoking Status Former Smoker Vape Leanne Guillen MA null, [employer] 09/09/2023 11:20:09 What Is Your Level Of Caffeine Consumption? Moderate Information not available 09/09/2023 In The 14 Days Before Symptom Onset, Have You Had Close Contact With A Laboratory-confir med COVID-19 While That Case Was Ill? No Information not available 09/09/2023 In The 14 Days Before Symptom Onset, Have You Had Close Contact With A Person Who Is Under Investigation For COVID-19 While That Person Was Ill? No Information not available 09/09/2023 What Type Of Diet Are You Following? REGULAR Information not available 09/09/2023 Have There Been Any Changes To Your Family Or Social Situation? No Information no t available 09/09/2023 Do You Use Insect Repellent Routinely? No Information not available 09/09/2023 Where Do You Live? SingleLevelHouse Information not available 09/09/2023 What Was The Date Of Your Most Recent Tobacco Screening? 09/09/2023 Information not available 09/09/2023 How Many Children Do You Have? -1 Information not available 09/09/2023 Do You Have Any Pets? Yes Information not available 09/09/2023 What Is Your Relationship Status? Single Information not available 09/09/2023 Do You Use Your Seat Belt Or Car Seat Routinely? Yes Information not available 09/09/2023 Do You Have Smoke And Carbon Monoxide Detectors In Your Home? Yes Information not available 09/09/2023 Are You Passively Exposed To Smoke? No Information no t available 09/09/2023 Are There Any Smokers In Your House? No Information not available 09/09/2023 Do You Use Sunscreen Routinely? No Information not available 09/09/2023 Have You Recently Traveled Abroad? No Information not available 09/09/2023 Do You Have Any Dietary Restrictions? No Information not available 09/09/2023 How Many Years Have You Used E-cigarettes Or Vape? 5 Information not available 09/09/2023 Sex: Unknown Functional Status Question Answer Note LastModified by Organizat ion Details LastModified Time Do you use any illicit or recreational drugs? No Information not available 09/09/2023 Do you or have you ever used any other forms of tobacco or nicotine? Yes Information not available 09/09/2023 What is your level of alcohol consumption? Occasional Information not available 09/09/2023 Are you currently employed? Yes Information not available 09/09/2023 What is your occupation? [employer] Information not available 09/09/2023 Do you or have you ever used e-cigarettes or vape? Former user of electronic cigarettes Information not available 09/09/2023 What is your exercise level? Moderate Information not available 09/09/2023 Mental Status Question Answer Note LastModified by Organization D etails LastModified Time Do you feel stressed (tense, restless, nervous, or anxious, or unable to sleep at night)? [id number] Information not available 09/09/2023 Family History Relationship Description Onset Age of this Age Resolved Age Notes LastModified by Organization Details LastModified Time Father No current problems or disability [email or web address] Not available 09/08 11:17:50 Mother No current problems or disability [email or web address] Not available 09/08 11:17:50 Medical History No medical history recorded. Gynecological History Statement/Question Response How many live births 0 Date of Last Pap Current Control Method None Age at Menarche 13 Date of LMP 09/04/2023 Obstetrics History GPAL:G 0 P 0 0 0 0 Type Value Multiple Births 0 Full Term 0 Induced 0 Spontaneous 0 Premature 0 Living 0 Ectopics 0 Total 0 Immunizations Vaccine Type Date Status Note Provider Nam e and Address Organization Details Recorded Time Influenza, split virus, quadrivalent, preservative 0 eze Rehman APRN [address], [address], [place], [address], [employer] 11/09/2023 08:17:58 Hib, unspecified formulation 8 [address], [place], [address], [employer] 11/09/2023 08:17:58 Hib, unspecified formulation 5 eze Rehman APRN [address], [address], [place], [address], [employer] 11/09/2023 08:17:59 Hib, unspecified formulation [address], [place], [address], [employer] 11/09/2023 08:17:59 Hib, unspecified formulation [address], [place], [address], [employer] 11/09/2023 08:17:59 HPV9 [address], [place], [address], [employer] 11/09/2023 08:17:59 HPV9 [address], [place], [address], [employer] 11/09/2023 08:17:59 MMR [address], [address], [place], [address], [employer] 11/09/2023 08:17:59 MMRV 8 completed Janeth Rehman APRN [address], [address], [place], [address], [employer] 11/09/2023 08:17:59 pneumococcal conjugate PCV 7 8 completed [address], [address], [place], [address], [employer] 11/09/2023 08:17:59 pneumococcal conjugate PCV 7 5 [address], [address], [place], [address], [employer] 11/09/2023 08:17:59 pneumococcal conjugate PCV 7 5 [address], [address], [place], [address], [employer] 11/09/2023 08:17:59 pneumococcal conjugate PCV 7 5 [address], [address], [place], [address], [employer] 11/09/2023 08:17:59 DTaP-IPV 9 [address], [address], [place], [address], [employer] 11/09/2023 08:17:59 Tdap 6 completed [address], [address], [place], [address], [employer] 11/09/2023 08:17:59 varicella 0 completed [address], [address], [place], [address], [employer] 11/09/2023 08:17:59 influenza, split (incl. purified surface antigen) 8 completed Janeth Rehman APRN [address], [address], [place], [address], [employer] 11/09/2023 08:17:59 Hep B, adolescent or pediatric 5 completed Janeth Rehman APRN [address], [address], [place], [address], [facility] [employer] 11/09/2023 08:17:59 Hep A, pediatric, unspecified formulation 9 completed Janeth Rehman APRN [address], [address], [place], [address], [employer] 11/09/2023 08:17:59 Hep A, pediatric, unspecified formulation 8 completed Janeth Rehman APRN [address], [address], [place], [address], [facility] [email or web address] 11/09/2023 08:17:59 Meningococcal MCV4O 6 completed Janeth Rehman APRN [address], [address], [place], [address], [employer] 11/09/2023 08:17:59 Meningococcal MCV4O 2 completed Janeth Rehman APRN [address], [address], [place], [address], [employer] 11/09/2023 08:17:59 DTaP 8 [address], [place], [address], [facility] [email or web address] 11/09/2023 08:17:59 DTaP-Hep B-IPV 5 completed Janeth Rehman APRN [address], [address], [place], [address], [email or web address] 11/09/2023 08:17:59 DTaP-Hep B-IPV 5 completed Janeth Rehman APRN [address], [address], [place], [address], [email or web address] 11/09/2023 08:17:59 DTaP-Hep B-IPV 5 completed Janeth Rehman, PRE CODER [address] [facility], [address], [place], [address], [facility] 11/09/2023 08:17:59 Influenza, split virus, quadrivalent, PF 6 completed Janeth Rehman, PRE CODER [address] [facility], [address], [place], [address], [facility] 11/09/2023 08:17:59 Past Encounters Encounter ID Performer Location Encounter Start Date Encounter Closed Date Diagnosis/Indication Diagnosis SNOMED-CT Code Diagnosis ICD10 Code Diagnosis Note [id number] Kendal millan MD [facility] [address] [facility] [place] [address] 09/09/2023 11:00:54 09/09/2023 11:57:24 Skin lesion 92474572 L98.9 Seasonal a llergic rhinitis 624820248 J30.2 Diabetes m ellitus screening 259972270 Z13.1 Hyperlipid emia screening 464011673 Z13.220 Screening for disorder 847327345 Z13.9 Thyroid di sorder screening 552598084 Z13.29 Health Concerns Section Related Observation LastModified by Organization Detai ls LastModified Time None Recorded Concern Status LastModified by Organization Details LastModified Time None Recorded Advance Directives Directive None Recorded Payers Insurance Date Sequence Insurance Name Policy Number Policy Mccormick Covered Member ID Mccormick Member ID Guarantor Name 01/26/2024 1 [facility] (MEDICARE REPLACEMENT/AD VANTAGE - HMO) Negin Paulino [id number] Negin Paulino 03/08/2024 1 [facility] - DOS ON OR AFTER 20 (MEDICAID REPLACEMENT - HMO) Negin Paulino [id number] Negin Paulino Notes Date Note Type Note Provider Name and Address Organization Details Recorded Time 09/09/2023 text/html Negin presents today to establish care. She states that she has 2 moles on her right side that she is concerned about, they have appeared recently She also states that she needs her ears cleaned out. Also, she states that she is coughing up clear to green phlegm in the mornings. Janeth Rehman, PRE CODER [address] [facility], [facility] [address], [place], [address], [facility] 09/09/2023 11:55:04 OBGyn Episode No OBEpisode recorded.
--- OUTSIDE RECORDS SUMMARY | 2024-09-19 10:24 | XMS_ITS | Clinical Summary ---
Author Organization [facility] Address [address] [address] Care Team Providers Care Nurse Practitioner Manager Name Role Phone Shanda William MD Primary Care Provider [phone] Shanda William MD Unavailable [phone] Source Comments [facility],non-owned Affiliates and Associated Physician Practices is amultiple site organization consisting of ambulatory clinics and hospital sitesin [place], [place]. This disclosure is being madepursuant to the Care Everywhere program and may not contain all information available regarding this patient. Last updated 17.[facility] Allergies No known active allergies Medications * Be aware that medications may not be up to date on this document. Alwaysverify current medications with the patient. 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 Gender Identity Not on file Sexual Orientation Not on file Last Filed Vital Signs Vital Sign Reading Time Taken Comments Blood Pressure 107/61 09/15/2019 9:38 AM CDT Pulse 72 09/15/2019 9:38 AM CDT Temperature 36.2 C (97.2 F) 09/01/2016 9:40 PM CDT Respiratory Rate 15 09/01/2016 9:40 PM CDT Oxygen Saturation 98% 09/01/2016 9:40 PM CDT Inhaled Oxygen Concentration - - Weight 65.8 kg (145 lb) 09/15/2019 9:38 AM CDT Height 167.6 cm (5' 6) 09/15/2019 9:38 AM CDT Body Mass Index 23.4 09/15/2019 9:38 AM CDT Plan of Treatment Health Maintenance Due Date Last Done Comments HIV SCREENING 08/25/2019 HPV VACCINE (1 - 3-dose series) 08/25/2019 CHLAMYDIA/GONORRHEA SCREENING 2020 MENINGOCOCCAL (Group B) VACC INE SHARED DECISION-MAKING (1 of 2 - Standard) 2020 HEPATITIS C SCREENING 08/20/2022 DTAP/TDAP/TD VACCINES (1 - Tdap) 08/25/2023 HEPATITIS B VACCINE (1 of 3 - 19+ 3-dose series) 08/25/2023 COVID-19 VACCINE (1 - 2023-2 5 season) 2023 DEPRESSION SCREENING 04/05/2024 INFLUENZA VACCINE (Season Ended) 2024 ZOSTER VACCINE (1 of 2) 2054 HIB VACCINE Aged Out No longer eligi ble based on patient's age to complete this topic MENINGOCOCCAL GROUPS A/C/Y/W VACCINE Aged Out No longer eligible b ased on patient's age to complete this topic PNEUMOCOCCAL VACCINE Aged Out No long er eligible based on patient's age to complete this topic Insurance [facility] Care Teams Nurse Practitioner Manager Relationship Specialty Start Date End Date Shanda William MD [address] [place] [address] PCP - General 09/13/19 Shanda William MD [address] [place] [address] Pediatrics 09/13/19
[2024-09-19] MEDS: KETOROLAC 15 MG/ML VIAL (*BKC) IV PUSH (10:32)
--- NOTE | 2024-09-19 10:41 | ED.GENADULT ---
HPI - General Adult General Chief complaint: Chest Pain Stated complaint: chest wall pain Time Seen by Provider: 09/19/24 10:21 History of Present Illness HPI narrative: Patient 19-year-old female presents emergency department chief complaint of chest pain. Patient reports that she started having discomfort yesterday on the right sternal border the patient states the pain is sharp reports worse with inspiration and worse with movement. Patient reports no trauma denies fever denies cough. Patient reports no history of thromboembolic disease Related Data Allergies Allergy/AdvReac Type Severity Reaction Status Date / Time No Known Allergies Allergy Verified 09/19/24 09:40 Review of Systems Review of Systems: A 10 system review of systems was completed on the patient and is negative except for what is stated in the HPI. Nursing and ancillary documentation was reviewed. Exam Narrative: GENERAL: Well-appearing, well-nourished, and in no acute distress. HEAD: Normocephalic, atraumatic. EYES: PERRLA and EOMI. ENT: Nares clear, no rhinorrhea or epistaxis. Mucous membranes moist. NECK: Supple. CHEST: Clear to auscultation. No respiratory distress. Chest wall is tender to palpation the right sternal border HEART: Regular rate and rhythm. No murmur heard. Normal peripheral pulses. ABDOMEN: Soft, nontender, nondistended, normal active bowel sounds. EXTREMITIES: Normal range of motion. No edema. SKIN: Warm, dry, no rash. NEURO: No focal deficits. Alert and oriented x3. PSYCH: Normal mood and affect. Course Vital Signs Vital signs: Vital Signs Temperature 36.4 C 09/19/24 09:36 Pulse Rate 68 09/19/24 09:36 Respiratory Rate 17 09/19/24 09:36 Blood Pressure 108/71 09/19/24 09:36 Pulse Oximetry 100 09/19/24 09:36 Oxygen Delivery Room Air 09/19/24 09:36 Temperature 36.4 C 09/19/24 09:36 Pulse Rate 60 09/19/24 11:40 Respiratory Rate 18 09/19/24 11:40 Blood Pressure 114/72 09/19/24 11:40 Pulse Oximetry 100 09/19/24 11:40 Oxygen Delivery Room Air 09/19/24 09:43 Medical Decision Making [facility] Narrative Medical decision making narrative: Differential diagnosis includes pulmonary embolism, ACS, atypical chest pain, chest wall pain EKG showed no acute ischemic changes laboratory studies were obtained on the patient showed a negative troponin Patient had a slightly elevated D-dimer CT PE protocol showed no evidence of PE Vital Signs Vital Signs: Vital Signs Temperature 36.4 C 09/19/24 09:36 Pulse Rate 68 09/19/24 09:36 Respiratory Rate 17 09/19/24 09:36 Blood Pressure 108/71 09/19/24 09:36 Pulse Oximetry 100 09/19/24 09:36 Oxygen Delivery Room Air 09/19/24 09:36 Temperature 36.4 C 09/19/24 09:36 Pulse Rate 60 09/19/24 11:40 Respiratory Rate 18 09/19/24 11:40 Blood Pressure 114/72 09/19/24 11:40 Pulse Oximetry 100 09/19/24 11:40 Oxygen Delivery Room Air 09/19/24 09:43 Lab Data 09/19/24 09:41 09/19/24 09:41 Labs: Lab Results 09/19/24 09/19/24 09/19/24 Range/Units 09:41 11:51 12:42 WBC 8.2 (4.5-10.0) K/mm3 RBC 4.34 (4.2-5.4) M/mm3 Hgb 12.0 (12.0-15.0) g/dL Hct 38.5 (37.0-47.0) % MCV 88.7 (80-100) fl MCH 27.6 (26-34) pg MCHC 31.2 L (32-36) g/dl RDW 14.4 (11.5-14.5) % Plt Count 352 (150-375) k/mm3 MPV 9.9 (7.4-10.4) fl Immature Gran % (Auto) 0.4 (0-0.5) % Neut % (Auto) 51.0 (45.5-73.1) % Lymph % (Auto) 35.6 (18.3-44.2) % Weber % (Auto) 8.8 H (2.6-8.5) % Eos % (Auto) 3.2 (0-4.4) % Baso % (Auto) 1.0 (0.2-1.2) % Lymph # (Auto) 2.92 (0.9-3.2) K/mm3 Weber # (Auto) 0.7 H (0.1-0.6) K/mm3 Eos # (Auto) 0.3 (0-0.3) K/mm3 Baso # (Auto) 0.1 (0.0-0.1) K/mm3 Abs Immat Gran (auto) 0.03 (0.00-0.031) K/mm3 Absolute Neuts (auto) 4.2 (1.3-6.7) K/mm3 Absolute Nucleated RBC 0.000 (0.0-0.012) K/mm3 Nucleated RBC % 0.0 (0.0-0.2) % PT 13.0 (11.1-14.7) Seconds INR 1.0 APTT 27.6 (22.3-36.8) Seconds D-Dimer 0.59 H (<0.48) ug/mL Sodium 140 (137-145) mmol/L Potassium 4.1 (3.4-5.0) mmol/L Chloride 106 (98-107) mmol/L Carbon Dioxide 25 (22-30) mmol/L Anion Gap 9 (4-12) mmol/L BUN 20 H (7-17) mg/dL Creatinine 0.81 (0.7-1.0) mg/dL Estim Creat Clear Calc 87 ml/min Estimated GFR > 60 (59 - ) Glucose 99 (65-110) mg/dL Calcium 9.4 (8.4-10.2) mg/dL Total Bilirubin 0.2 (0.2-1.3) mg/dL AST 29 (14-36) U/L ALT 22 (6-35) U/L Alkaline Phosphatase 73 (38-126) U/L Troponin I < 0.012 Pending (0.000-0.034) ng/mL Total Protein 7.9 (6.3-8.2) g/dL Albumin 4.6 (3.5-5.1) g/dL Lipase 91 (23-300) U/L POC Urine HCG, Qual Negative (Negative) Discharge Plan Discharge Clinical Impression: Acute chest wall pain Patient Disposition: Home Condition: Stable Instructions: Antibiotic Form, Chest Wall Pain (ED) Patient Language: Slovak Prescriptions: New diclofenac potassium 50 mg tablet 50 mg PO TID PRN (Reason: pain) Qty: 21 0RF Follow-up/Referrals: PHYSICIAN,SENIOR GIS ANALYST [Primary Care Provider] - Chang Araiza MD [Physician] - Time of Disposition: 13:00 Quality HEART score for chest pain patients History: slightly suspicious ECG: normal Age: < or = to 45 years Risk factors: no risk factors known Troponin: < or = to 1x normal limit Heart score: 0
[2024-09-19 10:43] VITALS: BP 111/71; PULSE 70; RESP 20; O2SAT 100
[2024-09-19 11:06] LABS: D Dimer 0.59 ug/mL (<0.48)
[2024-09-19 11:40] VITALS: BP 114/72; PULSE 60; RESP 18; O2SAT 100
[2024-09-19 11:55] LABS: BEDSIDEPREGUCG Negative (Negative)
--- NOTE | 2024-09-19 12:34 | ECG_ITS ---
Test Date: 2024-09-19 12:40:01 Measurements Intervals [place] Rate: 50 P: 23 CA: 146 QRS: 9 QRSD: 86 T: 0 QT: 412 QTc: 377 Interpretive Statements SINUS BRADYCARDIA WITH MARKED SINUS ARRHYTHMIA BORDERLINE ST-T WAVE ABNORMALITY- INFERIOR LEADS BASELINE ARTIFACT- I, II, III, AVR, AVLA, VF, V1 BORDERLINE ECG Compared to ECG 09/19/2024 09:39:13 HEART RATE HAS DECREASED Electronically Signed On 09-19-2024 12:46:22 CDT by Milton Ramsey D.O.
[2024-09-19 13:06] LABS: Troponin I < 0.012 ng/mL (0.000-0.034)
[2024-09-19 13:17] VITALS: BP 109/78; PULSE 54; RESP 14; TEMP 36.6; O2SAT 100
== END 2024-09-19 13:18 | disposition home or self-care (01) ==
PROVIDERS: Emergency Provider Emergency Medicine
DX: R07.89 Other chest pain (principal); R94.31 Abnormal electrocardiogram [ECG] [EKG]; R00.1 Bradycardia, unspecified
CPT/HCPCS: 36415; 71046; 71275; 80053; 81025; 83690; 84484; 85025; 85380; 85610; 85730; 93005; 96374; 99284; J1885; Q9967